=== PATIENT | female | born 1995 | race Hispanic/Latino ===

== ENCOUNTER 2024-04-01 21:50 | Emergency (ER) | payer SELFPAY ==
[2024-04-01 21:52] VITALS: BP 142/80
[2024-04-01 22:03] VITALS: BP 110/77
[2024-04-01 22:04] VITALS: BMI 34.0
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
[2024-04-01] MEDS: TYLENOL 650 MG PO (22:44)
[2024-04-01] MEDS: ZOFRAN 4 MG IV (22:49)
[2024-04-01 23:00] VITALS: BP 129/85
[2024-04-01 23:00] LABS: % Basophils 0.5 % (0-2); % Eosinophils 3.6 % (0-6); % Immature Granulocytes 1.2 % (0-0.5); % Lymphocytes 15.1 % (20.5-51.1); % Monocytes 8.4 % (1.7-9.3); % Neutrophils 71.2 % (42.2-75.2); Absolute Basophils 0.1 10^3/uL (0-0.2); Absolute Eosinophils 0.5 10^3/uL (0-0.7); Absolute Immature Granulocytes 0.2 10^3/uL (0-0.05); Absolute Lymphocytes 1.9 10^3/uL (1.2-3.4); Absolute Monocytes 1.1 10^3/uL (0.1-0.6); Absolute Neutrophils 9.2 10^3/uL (1.4-6.5); Hematocrit 31.2 % (37.0-47.0); Hemoglobin 11.2 g/dL (12.0-16.0); Mean Corp Hgb Conc. 35.9 g/dL (33.0-37.0); Mean Corpuscular Hgb 30.4 pg (27.0-31.0); Mean Corpuscular Volume 84.8 fL (81.0-99.0); Mean Platelet Volume 8.2 fL (7.4-10.4); Nucleated Red Blood Cells % 0 %; Platelet Count 270 10^3/uL (130-400); Red Blood Cell Count 3.68 10^6/uL (4.20-5.40); Red Cell Dist. Width 12.8 % (11.5-14.5); White Blood Cell Count 12.9 10^3/uL (4.8-10.8)
[2024-04-01 23:14] LABS: ALT (SGPT) 25 U/L (0-35); AST (SGOT) 23 U/L (14-36); Albumin 3.2 g/dl (3.5-5.0); Alkaline Phosphatase 95 U/L (38-126); Blood Urea Nitrogen 13 mg/dl (7-17); Calcium 9.2 mg/dl (8.4-10.2); Carbon Dioxide 23 mmol/L (22-30); Chloride 106 mmol/L (98-107); Estimated Creatinine Clearance > 125 ml/min; Glucose 107 mg/dl (70-99); Potassium 3.6 mmol/L (3.5-5.1); Sodium 134 mmol/L (135-145); Total Bilirubin 0.3 mg/dl (0.2-1.3); Total Protein 5.9 g/dl (6.3-8.2); eGFR > 60.00
[2024-04-01] MEDS: VENTOLIN NEBULES 2.5 MG INH (23:58)
== END 2024-04-02 00:17 | disposition home or self-care (01) ==
LOC: EMR 21:50
PROVIDERS: Physician Assistant; EMERGENCY PHYSICIAN Emergency Medicine; FAMILY PHYSICIAN Family Medicine
DX: R51.9 Headache, unspecified (principal); M54.50 Low back pain, unspecified; R07.89 Other chest pain; R10.9 Unspecified abdominal pain; V49.50XA Passenger injured in collision with unspecified motor vehicles in traffic accident, initial encounter; Y92.410 Unspecified street and highway as the place of occurrence of the external cause; O99.513 Diseases of the respiratory system complicating pregnancy, third trimester; J45.909 Unspecified asthma, uncomplicated; Z3A.29 29 weeks gestation of pregnancy; Z33.1 Pregnant state, incidental; Z88.0 Allergy status to penicillin
CPT/HCPCS: 99284; 96374; 94640; 76815; 80053; 85025

== ENCOUNTER 2024-05-14 13:10 | Observation (INO) | payer OTHER, SELFPAY ==
[2024-05-14 13:22] VITALS: BP 115/63; BMI 34.4
== END 2024-05-14 14:44 | disposition home or self-care (01) ==
LOC: LDRP 13:10
PROVIDERS: ADMITTING PHYSICIAN Obstetrics & Gynecology
DX: Z03.79 Encounter for other suspected maternal and fetal conditions ruled out (principal)
CPT/HCPCS: G0378

== ENCOUNTER 2024-06-04 08:24 | Observation (INO) | payer SELFPAY ==
[2024-06-04 08:31] VITALS: BP 115/68; BMI 36.9
[2024-06-04] MEDS: BRETHINE 250 MCG SC (09:26)
== END 2024-06-04 13:00 | disposition home or self-care (01) ==
LOC: LDRP 08:24
PROVIDERS: ADMITTING PHYSICIAN Obstetrics & Gynecology
DX: O32.1XX0 Maternal care for breech presentation, not applicable or unspecified (principal); Z3A.37 37 weeks gestation of pregnancy; Z88.0 Allergy status to penicillin; Z91.013 Allergy to seafood; J45.909 Unspecified asthma, uncomplicated; Z79.51 Long term (current) use of inhaled steroids; O99.213 Obesity complicating pregnancy, third trimester
CPT/HCPCS: 59412; 86850; 86900; 86901; G0378

== ENCOUNTER 2024-06-22 09:18 | Inpatient (IN) | payer OTHER, SELFPAY ==
[2024-06-22 09:34] VITALS: BMI 36.9
[2024-06-22 09:40] VITALS: BP 118/69
[2024-06-22 11:29] LABS: Hemoglobin 11.7 g/dL (12.0-16.0); Mean Corp Hgb Conc. 33.4 g/dL (33.0-37.0); Mean Corpuscular Hgb 28.2 pg (27.0-31.0); Mean Corpuscular Volume 84.3 fL (81.0-99.0); Mean Platelet Volume 8.7 fL (7.4-10.4); Platelet Count 242 10^3/uL (130-400); Red Blood Cell Count 4.15 10^6/uL (4.20-5.40); White Blood Cell Count 10.9 10^3/uL (4.8-10.8)
[2024-06-22] MEDS: TYLENOL 1000 MG PO (13:16)
[2024-06-22] MEDS: CLEOCIN 50 IV (13:17)
[2024-06-22] MEDS: BICITRA 30 ML PO (13:18)
[2024-06-22] MEDS: GENTAMICIN 60 MG IV (14:43)
[2024-06-22] MEDS: MORPHINE SULFATE 2 MG IV (16:48)
[2024-06-22] MEDS: TRANEXAMIC ACID 100 IV (17:44)
[2024-06-22] MEDS: PITOCIN 30 UNITS/NSS 500 ML IV (17:45)
[2024-06-22] MEDS: CYTOTEC 800 MCG RECTAL (17:46)
[2024-06-22] MEDS: DILAUDID 0.5 MG IV (17:56)
[2024-06-22] MEDS: HEMABATE 250 MCG IM (18:10)
[2024-06-22 18:20] LABS: Hematocrit 34.1 % (37.0-47.0); Hemoglobin 11.3 g/dL (12.0-16.0); Platelet Count 246 10^3/uL (130-400)
[2024-06-22] MEDS: METHERGINE INJECTION 0.2 MG IM (18:56)
[2024-06-22 18:59] LABS: INR 1.08; PT 13.8 Sec (11.4-14.6)
[2024-06-22 19:00] LABS: APTT 28.9 Sec (23.4-35.0); Fibrinogen 435 MG/DL (199-459)
[2024-06-22 19:06] VITALS: BP 115/63
[2024-06-22 19:27] VITALS: BP 115/61
[2024-06-22 19:41] VITALS: BP 107/55
[2024-06-22 19:43] VITALS: BP 131/62
[2024-06-22] MEDS: MORPHINE SULFATE 4 MG IV ×2 (19:57→23:20)
[2024-06-22] MEDS: ProAIR HFA INHALER INH (20:12)
[2024-06-22 21:20] VITALS: BP 113/70
[2024-06-22] MEDS: ZOFRAN 4 MG IV (23:18)
[2024-06-23] MEDS: ProAIR HFA INHALER INH ×2 (01:15→13:06)
[2024-06-23] MEDS: MORPHINE SULFATE 2 MG IV (03:49)
[2024-06-23] MEDS: FLUSH (NSS) 2 FLUSH IV ×2 (03:51→23:49)
[2024-06-23] MEDS: REGLAN 10 MG IV (03:55)
[2024-06-23 05:12] LABS: Hematocrit 31.9 % (37.0-47.0); Hemoglobin 10.9 g/dL (12.0-16.0); Mean Corp Hgb Conc. 34.2 g/dL (33.0-37.0); Mean Corpuscular Hgb 27.8 pg (27.0-31.0); Mean Corpuscular Volume 81.4 fL (81.0-99.0); Platelet Count 262 10^3/uL (130-400); Red Blood Cell Count 3.92 10^6/uL (4.20-5.40); Red Cell Dist. Width 15.9 % (11.5-14.5); White Blood Cell Count 17.9 10^3/uL (4.8-10.8)
[2024-06-23] MEDS: PRENATAL PLUS 1 TABLET PO (08:39)
[2024-06-23] MEDS: TORADOL 15 MG IV ×3 (10:50→23:47)
[2024-06-23] MEDS: PERCOCET 5/325 1 TABLET PO (11:34)
[2024-06-23] MEDS: BENADRYL 25 MG PO (11:34)
[2024-06-23] MEDS: ProAIR HFA INHALER 1 PUFF INH ×2 (13:12→19:23)
--- NOTE | 2024-06-23 15:00 | W.PN.ANS.POP ---
Anesthesia Post Operative
- Anesthesia Post Op Note
Vital Signs Stable-See Nursing Note: Yes
Airway Patent: Yes
Adequate Pain Control: Yes
Change in Mental Status: No
Current Postoperative Nausea & Vomiting: No
Anesthesia Complications: No
General Anesthetic Recall: No
Unplanned Admission: No
Post Op Hydration Adequate: Yes
[2024-06-23] MEDS: PERCOCET 5/325 2 TABLET PO ×2 (16:21→22:02)
[2024-06-24] MEDS: ProAIR HFA INHALER 1 PUFF INH ×3 (01:40→14:50)
[2024-06-24] MEDS: TORADOL 15 MG IV (05:58)
[2024-06-24] MEDS: FLUSH (NSS) 1 FLUSH IV (05:59)
[2024-06-24] MEDS: PRENATAL PLUS 1 TABLET PO (08:03)
[2024-06-24] MEDS: PERCOCET 5/325 1 TABLET PO ×2 (08:07→16:20)
[2024-06-24] MEDS: MOTRIN 600 MG PO ×3 (12:10→23:53)
[2024-06-24] MEDS: TYLENOL 650 MG PO (12:12)
[2024-06-24] MEDS: ProAIR HFA INHALER 2 PUFF INH (20:02)
[2024-06-24] MEDS: PERCOCET 5/325 2 TABLET PO (20:39)
[2024-06-25] MEDS: PERCOCET 5/325 2 TABLET PO ×2 (00:48→06:18)
[2024-06-25] MEDS: ProAIR HFA INHALER 2 PUFF INH ×2 (01:32→07:12)
[2024-06-25] MEDS: MOTRIN 600 MG PO (06:17)
[2024-06-25] MEDS: PRENATAL PLUS PO (08:12)
--- NOTE | 2024-06-25 17:30 | W.DS.TRANS ---
DC Summary - [facility]
-
Discharge Instructions:
Discharge Diagnosis/Procedures section
Instructions:
Stand-Alone Forms: LDRP Delivery
Changes to Home Medications: No
Discharge Medications:
DC Medications w/original date entered in [facility]
albuterol 90 mcg-budesonide 80 mcg/actuation HFA aerosol inhaler 1 inh inhalation Q6H Lung/Breathing Issues 06/04/24
budesonide 180 mcg/actuation breath activated powder inhaler (Pulmicort Flexhaler) 1 inh inhalation PRN PRN asthma 06/04/24
iron, carbonyl 45 mg tablet (Feosol) 45 mg PO DAILY Supplement 06/04/24
vitamin-ferrous fumarate 28 mg iron-folic acid 800 mcg tablet ( Tablet) 1 tab PO DAILY Supplement 06/04/24
acetaminophen 325 mg tablet 650 mg (2 x 325 mg) PO Q4HPRN PRN mild pain #0 tabs 06/25/24
ibuprofen 600 mg tablet 600 mg PO Q6HPRN PRN cramps #45 tabs 06/25/24
oxycodone-acetaminophen 5 mg-325 mg tablet 1 tab PO Q4HPRN PRN moderate pain #15 tabs 06/25/24
Home Medication Changes
Pending Results: No
[2024-06-26 13:50] LABS: Syphilis/T. pallidum Ab Reflex Negative (Negative)
== END 2024-06-25 12:50 | disposition home or self-care (01) | DRG 787 ==
LOC: LDRP 09:18
PROVIDERS: ADMITTING PHYSICIAN Obstetrics & Gynecology
PROC: 10D00Z1 Extraction of Products of Conception, Low, Open Approach (ICD-10-PCS; 2024-06-22)
PROC: 30233N1 Transfusion of Nonautologous Red Blood Cells into Peripheral Vein, Percutaneous Approach (ICD-10-PCS; 2024-06-22)
DX: O32.1XX0 Maternal care for breech presentation, not applicable or unspecified (principal); O72.1 Other immediate postpartum hemorrhage; O99.52 Diseases of the respiratory system complicating childbirth; J45.909 Unspecified asthma, uncomplicated; Z37.0 Single live birth; Z3A.40 40 weeks gestation of pregnancy; Z90.89 Acquired absence of other organs; Z88.0 Allergy status to penicillin; Z82.5 Family history of asthma and other chronic lower respiratory diseases; Z83.2 Family history of diseases of the blood and blood-forming organs and certain disorders involving the immune mechanism
CPT/HCPCS: 76856; 85014; 85018; 85027; 85049; 85384; 85610; 85730; 86780; 86850; 86900; 86901; 86920; 94640; P9016

== ENCOUNTER 2024-10-22 21:08 | Emergency (ER) | payer OTHER, SELFPAY ==
[2024-10-22 21:16] VITALS: BP 140/90
--- NOTE | 2024-10-22 21:17 | ED.GENMED ---
ED Provider Triage
-
Patient seen by provider in Triage?: Seen in Triage
Attestation: A medical screening examination has been initiated by a qualified medical provider. Based on the assessment performed at this time, it has been determined that an emergent medical condition may exist and the patient has been informed
that further medical evaluation and possible additional diagnostic testing may be needed.
HPI: 29-year-old female, G3, P2, estimates to be about 6 weeks presenting to the ER for evaluation of lower abdominal pain vaginal bleeding that started earlier today. Describes bleeding like a heavier menstrual period with lower abdominal
cramping. States had a delivery here back in June and believes her last menstrual period was either in July or August. Labs and ultrasound imaging ordered. Patient is able hemodynamically stable.
GENERAL: Alert , in no apparent distress
EYE: No visual abnormalities.
NECK: Trachea midline
ENT: No visible abnormalities.
LUNGS: No acute respiratory distress
NEUROLOGICAL: Alert and oriented
SKIN: Skin intact. No visible changes.
MUSCULOSKELETAL: Moving extremities normally
PSYCH: Normal and appropriate interaction.
This is a medical evaluation conducted in person to initiate diagnostic evaluation and provide initial therapeutics. Please see further documentation by the treating clinician.
History of Present Illness
General
Chief Complaint: Problems
Source: patient
Time Seen by Provider: 10/22/24 23:15
History of Present Illness
History of Present Illness:
29-year-old female, G3, P2, presenting to the ER for evaluation after she had a positive test 2 weeks ago, this evening started with vaginal bleeding described to be a little bit heavier than a normal period associated with lower abdominal
cramping. Patient notes that she had a recent delivery here back in June that was uncomplicated. Currently bottlefeeding and not breast-feeding. She denies any fevers, chills, rigors, urinary symptoms or any other concerns at this
time. Patient follows with [facility]. Has yet to be seen for this reported .
Past History
Past History
ED Past Medical History: None
ED Past Surgical History:
Social History
Tobacco: Non-smoker
Alcohol: None
Drug: None
Living: with family
Review of Systems
Review of Systems
All Other Systems: ROS reviewed and negative except as documented in HPI and ROS
Phy Exam
Physical Exam
Physical Exam:
GENERAL: Alert , in no apparent distress
EYE: conjunctiva clear
Head: Normocephalic atraumatic
NECK: Supple,
ENT: mmm.
LUNGS: no acute respiratory distress
NEUROLOGICAL: Alert and oriented
SKIN: Warm and dry, skin intact.
MUSCULOSKELETAL: well perfused.
PSYCH: Normal and appropriate interaction.
Scores
Heart Failure Risk
Heart Failure Risk Score: Not Applicable
Heart Score for Chest Pain Patients
STEMI patient?: Not applicable
Withdrawal Assessment of Alcohol
Withdrawal Assessment Completed?: Not applicable
Course
Orders/Labs/Results
Orders:
Orders
10/22/24 21:26
Basic Metabolic Panel Urgent
Complete Blood Count/With Diff Urgent
HCG, Beta Quantitative [Beta HCG Quantitative] Urgent
Is this a screen?: No
Abnormal Lab Results
10/22/24
21:26
MCV 79.9 L fL
(81.0-99.0)
10/22/24 21:26
10/22/24 21:26
Vital Signs
Initial and Last Documented VS:
Initial Vital Signs
Pulse Resp BP Pulse Ox
72 18 140/90 96
10/22/24 21:16 10/22/24 21:16 10/22/24 21:16 10/22/24 21:16
Last Documented Vital Signs
Pulse Resp BP Pulse Ox
71 18 126/80 96
10/22/24 23:11 10/22/24 23:11 10/22/24 23:11 10/22/24 23:11
Information
Weeks gestation: N/A
Location: N/A
MDM/Problems Addressed
Differential Diagnosis Includes:
Threatened , incomplete miscarriage, completed miscarriage, ectopic menstrual period
MDM/Problems Addressed:
29-year-old female presenting to the emergency department for evaluation of vaginal bleeding that started earlier this evening with lower abdominal cramping. Positive test at home 2 weeks ago. Recently had a delivery back in
June. No other symptoms presently. Labs and ultrasound imaging ordered. Disposition pending
*Pulse Oximetry
Patient hypoxic: no
*Critical Care Note
Total Time (30-74mins, 75-104mins- exclusive of procedures): Not Applicable
Data Reviewed
Review of Other/Old Records Reveals: Labs and Records
Patient Management
Escalation/DeEscalation of care consider admission/obs:
Patient's hCG is undetectable. Hemoglobin within normal limits. Patient is in no acute distress and remains hemodynamically stable. At this time I do think is reasonable for patient to be discharged home and can follow-up with her [facility] as needed.
Return precautions discussed to the ER. Otherwise stable for discharge home.
ED Attending Note
-
Portions of this chart may have been created with voice recognition software.� Occasional wrong word or��sound alike� substitutions may have occurred due to the inherent limitations of voice recognition software.
Discharge Plan
Departure
Patient Disposition: Home (Routine Discharge)
Date of Disposition: 10/22/24
Time of Disposition: 23:13
Patient with high blood pressure during this ER visit?: Yes
Discharge Problem:
Vaginal bleeding
Instructions: Bleeding Between Periods
Prescriptions:
No Action
vit-iron fum-folic ac [ Tablet] 28 mg iron- 800 mcg Tablet
1 tab PO DAILY
iron, carbonyl [Feosol] 45 mg Tablet
45 mg PO DAILY
Pulmicort Flexhaler 180 mcg/actuation Aerosol Powdr Breath Activated
1 inh INHALATION PRN PRN (Reason: asthma)
albuterol-budesonide 90-80 mcg/actuation Hfa Aerosol Inhaler
1 inh INHALATION Q6H
Rx Instructions:
as a single dose; may repeat up to 6 doses per day (12 inhalations)
acetaminophen 325 mg Tablet
650 mg PO Q4HPRN PRN (Reason: mild pain) Qty: 0 0RF
oxycodone-acetaminophen 5-325 mg Tablet
1 tab PO Q4HPRN PRN (Reason: moderate pain) Qty: 15 0RF
ibuprofen 600 mg Tablet
600 mg PO Q6HPRN PRN (Reason: cramps) Qty: 45 0RF
Interventions
Interventions:
*Risk Screen - Suicide Last Done: 10/22/24 21:16
*General Assessment Last Done: 10/22/24 21:16
*Neglect/Abuse Screening Last Done: 10/22/24 21:16
*ED COVID-19 Vaccine History Last Done: 10/22/24 21:16
Discharge Date and Time
Print Language: ALBAN[place]
[2024-10-22 21:37] LABS: % Basophils 0.5 % (0-2); % Eosinophils 4.5 % (0-6); % Immature Granulocytes 0.2 % (0-0.5); % Lymphocytes 32.3 % (20.5-51.1); % Monocytes 6.7 % (1.7-9.3); % Neutrophils 55.8 % (42.2-75.2); Absolute Eosinophils 0.4 10^3/uL (0-0.7); Absolute Lymphocytes 2.7 10^3/uL (1.2-3.4); Absolute Monocytes 0.6 10^3/uL (0.1-0.6); Absolute Neutrophils 4.7 10^3/uL (1.4-6.5); Hematocrit 37.3 % (37.0-47.0); Hemoglobin 12.6 g/dL (12.0-16.0); Mean Corp Hgb Conc. 33.8 g/dL (33.0-37.0); Mean Corpuscular Volume 79.9 fL (81.0-99.0); Mean Platelet Volume 8.7 fL (7.4-10.4); Nucleated Red Blood Cells % 0 %; Platelet Count 319 10^3/uL (130-400); Red Blood Cell Count 4.67 10^6/uL (4.20-5.40); Red Cell Dist. Width 13.5 % (11.5-14.5); White Blood Cell Count 8.5 10^3/uL (4.8-10.8)
[2024-10-22 21:50] LABS: Blood Urea Nitrogen 16 mg/dl (7-17); Calcium 9.6 mg/dl (8.4-10.2); Carbon Dioxide 26 mmol/L (22-30); Chloride 102 mmol/L (98-107); Glucose 96 mg/dl (70-99); Potassium 3.7 mmol/L (3.5-5.1); Sodium 140 mmol/L (135-145); eGFR > 60.00
[2024-10-22 22:06] LABS: Beta HCG Quantitative < 2.39 mIU/ml
[2024-10-22 23:11] VITALS: BP 126/80
== END 2024-10-22 23:30 | disposition home or self-care (01) ==
LOC: EMR 21:08
PROVIDERS: Physician Assistant Medical; EMERGENCY PHYSICIAN Student in an Organized Health Care Education/Training Program
DX: O20.9 Hemorrhage in early pregnancy, unspecified (principal); Z3A.01 Less than 8 weeks gestation of pregnancy; R10.30 Lower abdominal pain, unspecified; R03.0 Elevated blood-pressure reading, without diagnosis of hypertension; Z88.0 Allergy status to penicillin; Z91.013 Allergy to seafood
CPT/HCPCS: 99283; 80048; 84702; 85025